=== PATIENT | female | born 1975 | race Caucasian/White ===

== ENCOUNTER → 2017-02-03 | Outpatient (REF) | payer OTHER ==
[~2017-02-03] MED LIST: ACET50TA PO; ANUS2.5C2 TOP; DOCU10ELUD PO; FLEX10TA2 PO; IBUP600T26 PO; LANOLIN CREAM TOP; MOM30SS PO; NO REGULAR MEDS; PRENTAB66 PO; TYLE325T5 PO
== END ==
LOC: M LAB REF 21:59
PROVIDERS: ATTEND Physician Assistant Medical
DX: N39.0 Urinary tract infection, site not specified (principal)

== ENCOUNTER → 2017-02-05 | Outpatient (REF) | payer OTHER | LOC: M LAB REF 17:06 | PROVIDERS: ATTEND Physician Assistant Medical | DX: N39.0 Urinary tract infection, site not specified (principal) ==

== ENCOUNTER → 2017-04-25 | Outpatient (CLI) | payer OTHER ==
[2017-04-25 13:43] LABS: BASO % 0.3 % (0.0-1.0); EOS # 0.2 10^3/uL (0.0-0.50); EOS % 1.7 % (0.0-3.0); IMMATURE GRANULOCYTE % 0.6 % (0-0); LYMPH # 1.8 10^3/uL (1.5-4.5); LYMPH % 19.5 % (24.0-44.0); MEAN CORPUSCULAR HEMOGLOBIN 31.3 pg (27.0-33.0); MEAN CORPUSCULAR HGB CONC 34.8 g/dl (32.0-36.5); MONO # 0.5 10^3/uL (0.0-0.8); MONO % 5.3 % (0.0-5.0); NEUTROPHILS # 6.9 10^3/uL (1.8-7.7); NEUTROPHILS % 72.6 % (36.0-66.0); PLATELET COUNT, AUTOMATED 316 10^3/uL (150-450); RED CELL DISTRIBUTION WIDTH 12.2 % (11.5-14.5); WHITE BLOOD COUNT 9.5 10^3/uL (4.0-10.0)
[2017-04-25 14:07] LABS: ALBUMIN 3.6 GM/DL (3.2-5.2); ALBUMIN/GLOBULIN RATIO 1.06 (1.00-1.93); ALKALINE PHOSPHATASE 106 U/L (45-117); ALT/SGPT 21 U/L (12-78); ANION GAP 9 MEQ/L (8-16); AST/SGOT 13 U/L (7-37); BILIRUBIN,TOTAL 0.4 MG/DL (0.2-1.0); BLOOD UREA NITROGEN 16 MG/DL (7-18); CALCIUM LEVEL 8.4 MG/DL (8.5-10.1); CARBON DIOXIDE LEVEL 27 MEQ/L (21-32); CHLORIDE LEVEL 105 MEQ/L (98-107); CHOLESTEROL LEVEL 200 MG/DL (<200); CREATININE FOR GFR 0.61 MG/DL (0.55-1.02); FREE T4 0.82 NG/DL (0.76-1.46); GLOMERULAR FILTRATION RATE > 60.0 (>58); GLUCOSE, FASTING 80 MG/DL (70-105); POTASSIUM SERUM 4.3 MEQ/L (3.5-5.1); SODIUM LEVEL 141 MEQ/L (136-145); TRIGLYCERIDES LEVEL 222 MG/DL (<150)
== END ==
LOC: M WUC 09:18
PROVIDERS: ATTEND Family Medicine
DX: Z13.220 Encounter for screening for lipoid disorders (principal); Z13.29 Encounter for screening for other suspected endocrine disorder; Z13.0 Encounter for screening for diseases of the blood and blood-forming organs and certain disorders involving the immune mechanism; E55.9 Vitamin D deficiency, unspecified

== ENCOUNTER → 2017-05-17 | Outpatient (CLI) | payer OTHER ==
[2017-05-17 16:59] LABS: ALBUMIN 3.8 GM/DL (3.2-5.2); ALBUMIN/GLOBULIN RATIO 1.15 (1.00-1.93); ALKALINE PHOSPHATASE 91 U/L (45-117); ALT/SGPT 25 U/L (12-78); AST/SGOT 18 U/L (7-37); BILIRUBIN,DIRECT < 0.1 MG/DL (0.0-0.2); BILIRUBIN,TOTAL 0.4 MG/DL (0.2-1.0); TOTAL PROTEIN 7.1 GM/DL (6.4-8.2)
== END ==
LOC: M WUC 11:04
PROVIDERS: ATTEND Family Medicine
DX: B35.1 Tinea unguium (principal)

== ENCOUNTER → 2017-06-14 | Outpatient (REF) | payer OTHER | LOC: M LAB REF 17:03 | DX: R30.0 Dysuria (principal) ==

== ENCOUNTER → 2017-07-23 | Outpatient (CLI) | payer OTHER ==
[2017-07-23 13:22] LABS: TOTAL 25(OH) VITAMIN D 68.7 NG/ML (30.0-100.0)
== END ==
LOC: M WUC 10:27
DX: E55.9 Vitamin D deficiency, unspecified (principal)

== ENCOUNTER → 2017-07-25 | Outpatient (REF) | payer OTHER | LOC: M LAB REF 13:05 | DX: R39.14 Feeling of incomplete bladder emptying (principal) ==

== ENCOUNTER 2017-08-20 06:00 | Day surgery (SDC) | payer OTHER ==
[~2017-08-20 06:00] MED LIST changes: -ACET50TA PO; -ANUS2.5C2 TOP; -DOCU10ELUD PO; -FLEX10TA2 PO; -IBUP600T26 PO; -LANOLIN CREAM TOP; +LR 1,000 ML IV; -MOM30SS PO; -NO REGULAR MEDS; -PRENTAB66 PO; -TYLE325T5 PO
[2017-08-20 06:30] LABS: CONTROL LINE UCG INT CTR LINE PRESENT; URINE PREG TEST NEGATIVE (NEGATIVE)
[2017-08-20] MEDS ORDERED: fentaNYL 100 MCG/2 ML INJECTION (J3010) As Ordered ×3 (06:32→08:48)
[2017-08-20] MEDS ORDERED: PROPOFOL 200 MG/20 ML VIAL As Ordered (06:32)
[2017-08-20] MEDS ORDERED: LIDOCAINE 2% INJ 100 MG/5 ML SDV (FOR ANES.) As Ordered (06:32)
[2017-08-20] MEDS ORDERED: MIDAZOLAM INJ 2 MG/2 ML VIAL (J2250) As Ordered (06:32)
[2017-08-20] MEDS ORDERED: ROCURONIUM BROMIDE 50 MG/5 ML VIAL As Ordered (06:32)
[2017-08-20] MEDS: LR 1,000 ML IV (06:50)
[2017-08-20] MEDS ORDERED: ONDANSETRON 4MG/2ML VIAL (J2405) As Ordered ×2 (07:03→08:20)
[2017-08-20] MEDS ORDERED: dexameTHASONE 4 MG/ML 1ML VIAL (J1100) As Ordered (07:03)
[2017-08-20] MEDS ORDERED: METOCLOPRAMIDE INJ 10MG/2ML VIAL (J2765) As Ordered (07:05)
[2017-08-20] MEDS: SCOPOLAMINE 1MG TRANSDERMAL PATCH TOP (07:05)
[2017-08-20] MEDS ORDERED: GLYCOPYRROLATE INJ 0.2 MG/ML 2 ML VIAL As Ordered (08:12)
[2017-08-20] MEDS ORDERED: NEOSTIGMINE 10 MG/10 ML VIAL (J2710) As Ordered (08:12)
[2017-08-20] MEDS ORDERED: KETOROLAC 30 MG/ML VIAL (J1885) As Ordered (08:48)
[2017-08-20] MEDS: KETOROLAC 30 MG/ML VIAL (J1885) IV (08:55)
[2017-08-20] MEDS: fentaNYL 100 MCG/2 ML INJECTION (J3010) IV ×4 (08:56→09:14)
[2017-08-20] MEDS ORDERED: ONDANSETRON 4MG/2ML VIAL (J2405) IV (09:00)
[2017-08-20] MEDS ORDERED: IBUPROFEN 600 MG TAB PO (09:00)
[2017-08-20] MEDS ORDERED: LR 1,000 ML IV ×2 (09:00)
[2017-08-20] MEDS: PERCOCET 5MG/325MG TAB PO (09:19)
== END 2017-08-20 11:46 | disposition home or self-care (01) ==
LOC: M SDC 06:00
DX: N83.202 Unspecified ovarian cyst, left side (principal); N83.8 Other noninflammatory disorders of ovary, fallopian tube and broad ligament; F41.9 Anxiety disorder, unspecified; K21.9 Gastro-esophageal reflux disease without esophagitis; Z87.891 Personal history of nicotine dependence; Z87.59 Personal history of other complications of pregnancy, childbirth and the puerperium; Z88.2 Allergy status to sulfonamides; Z79.899 Other long term (current) drug therapy
CPT/HCPCS: 49322

== ENCOUNTER → 2017-11-12 | Outpatient (CLI) | payer OTHER | LOC: M SMT 10:35 | DX: S90.31XA Contusion of right foot, initial encounter (principal); W18.30XA Fall on same level, unspecified, initial encounter; Y92.009 Unspecified place in unspecified non-institutional (private) residence as the place of occurrence of the external cause ==

== ENCOUNTER 2018-06-21 15:56 | Emergency (ER) | payer OTHER ==
[~2018-06-21] VITALS: Ht 162.6 cm; Wt 79.5 kg
[~2018-06-21 15:56] MED LIST changes: +ACET50TA PO; +ALPR0.5T3 PO; +ANUS2.5C2 TOP; +BIOTPOW20 PO; +DOCU10ELUD PO; +FLEX10TA2 PO; +IBUP600T26 PO; +LANOLIN CREAM TOP; +LEXA5TAB13 PO; -LR 1,000 ML IV; +MOM30SS PO; +MULT1TAB10 PO; +NO REGULAR MEDS; +PRENTAB66 PO; +TYLE325T5 PO; +VITA20008 PO
[2018-06-21] MEDS ORDERED: ROBA500T PO (17:37)
[2018-06-21 17:40] VITALS: BP 129/80
--- NOTE | 2018-06-21 17:53 | REP ---
Clinical: Trauma. Fall. Technique: Axial noncontrast images from the skull base to the thoracic inlet with coronal and sagittal re-formations. Findings: Alignment and lordosis maintained. No acute fracture / compression injury or subluxation. Endplate sclerosis and disc space narrowing noted at C7-T1 along with uncovertebral hypertrophic changes primarily noted at the C3-4 and C4-5 levels. Neural foramen appear grossly patent. The spinal canal is patent. The surrounding soft tissues are unremarkable. Impression: Degenerative changes as noted above. No acute fracture / compression injury or subluxation. Electronically Signed by Lalo Woods MD 06/21/2018 05:45 P
--- NOTE | 2018-06-21 17:55 | REP ---
Clinical: Trauma/fall . Comparison: None . Findings: The ventricles, sulci, and cisterns are normal in position and appearance. Vuong-white differentiation is maintained. No acute intracranial hemorrhage, mass/mass effect, pathology or trauma/injury. No evidence for acute infarction. No extra-axial fluid collection. Calvarium is intact. Paranasal sinuses and mastoid air cells are clear. Impression: Normal noncontrast head CT. No evidence for acute intracranial pathology or trauma/injury. Electronically Signed by Lalo Woods MD 06/21/2018 05:47 P
== END 2018-06-21 17:43 | disposition home or self-care (01) ==
LOC: M ED 15:56
DX: S16.1XXA Strain of muscle, fascia and tendon at neck level, initial encounter (principal); S09.90XA Unspecified injury of head, initial encounter; W19.XXXA Unspecified fall, initial encounter; Y92.89 Other specified places as the place of occurrence of the external cause; M79.7 Fibromyalgia; Z88.2 Allergy status to sulfonamides; Z79.899 Other long term (current) drug therapy

== ENCOUNTER 2018-09-12 06:09 | Day surgery (SDC) | payer OTHER ==
[~2018-09-12] VITALS: Ht 162.6 cm; Wt 74.8 kg
[~2018-09-12 06:09] MED LIST changes: -ACET50TA PO; +D200CAP PO; -DOCU10ELUD PO; +DOCU5LIQ PO; +LR 1,000 ML IV ONE; +MAPA500T17 PO; +PHEN-239 PO; +PROBCAP14 PO; +ROBA500T PO
[2018-09-12] MEDS ORDERED: LIDOCAINE 2% INJ 100 MG/5 ML SDV (FOR ANES.) As Ordered ONE (06:20)
[2018-09-12] MEDS ORDERED: ONDANSETRON 4MG/2ML VIAL (J2405) As Ordered ONE (06:20)
[2018-09-12] MEDS ORDERED: dexameTHASONE 4 MG/ML 1ML VIAL (J1100) As Ordered ONE (06:20)
[2018-09-12] MEDS ORDERED: PROPOFOL 200 MG/20 ML VIAL As Ordered ONE (06:20)
[2018-09-12] MEDS ORDERED: ROCURONIUM BROMIDE 50 MG/5 ML VIAL As Ordered ONE ×2 (06:20→09:35)
[2018-09-12] MEDS ORDERED: fentaNYL 250 MCG/5 ML INJECTION (J3010) As Ordered ONE (06:22)
[2018-09-12] MEDS ORDERED: MIDAZOLAM INJ 2 MG/2 ML VIAL (J2250) As Ordered ONE ×2 (06:23→13:30)
[2018-09-12 06:48] LABS: HEMATOCRIT 43.3 % (36.0-47.0); HEMOGLOBIN 14.6 g/dl (12.0-15.5); MEAN CORPUSCULAR HEMOGLOBIN 30.2 pg (27.0-33.0); MEAN CORPUSCULAR HGB CONC 33.7 g/dl (32.0-36.5); MEAN CORPUSCULAR VOLUME 89.5 fl (80.0-96.0); PLATELET COUNT, AUTOMATED 327 10^3/uL (150-450); RED BLOOD COUNT 4.84 10^6/uL (4.00-5.40); WHITE BLOOD COUNT 16.4 10^3/uL (4.0-10.0)
[2018-09-12 06:53] LABS: URINE PREG TEST NEGATIVE (NEGATIVE)
[2018-09-12] MEDS ORDERED: SCOPOLAMINE 1MG TRANSDERMAL PATCH As Ordered ONE (07:08)
[2018-09-12] MEDS ORDERED: VASOPRESSIN INJ 20 UNITS/ML VIAL As Ordered ONE (07:08)
[2018-09-12] MEDS ORDERED: SCOPOLAMINE 1MG TRANSDERMAL PATCH TOP ONE (07:30)
[2018-09-12] MEDS ORDERED: HYDROmorphone HCL 2 MG/ML 1ML VIAL (J1170) As Ordered ONE (09:04)
[2018-09-12] MEDS ORDERED: SUGAMMADEX SODIUM 500 MG/5 ML VIAL (BRIDION) As Ordered ONE (09:35)
[2018-09-12] MEDS ORDERED: KETOROLAC 60 MG/2 ML VIAL (J1885) As Ordered ONE (09:39)
[2018-09-12] MEDS ORDERED: MORPHINE 1MG/ML IN 0.9% NACL 100ML IV BAG As Ordered ONE (11:25)
[2018-09-12] MEDS ORDERED: fentaNYL 100 MCG/2 ML INJECTION (J3010) As Ordered ONE (11:28)
[2018-09-12] MEDS: fentaNYL 100 MCG/2 ML INJECTION (J3010) IV PRN ×4 (11:28→12:10)
[2018-09-12] MEDS ORDERED: HYDROMORPHONE HCL 0.5 MG/ 0.5 ML SYRINGE (J1170 PER 1) IV PRN (11:45)
[2018-09-12] MEDS ORDERED: ONDANSETRON 4MG/2ML VIAL (J2405) IV PRN (11:45)
[2018-09-12] MEDS ORDERED: KETOROLAC 30 MG/ML VIAL (J1885) IV PRN (11:45)
[2018-09-12] MEDS ORDERED: LR 1,000 ML IV SCH (11:45)
[2018-09-12] MEDS ORDERED: diazePAM 5 MG TAB As Ordered ONE (11:59)
[2018-09-12] MEDS ORDERED: diazePAM 5 MG TAB PO ONE ×2 (12:15→12:45)
--- NOTE | 2018-09-12 12:21 | RO ---
DATE OF PROCEDURE: 09/12/2018 PREOPERATIVE DIAGNOSES/INDICATION FOR SURGERY: Bleeding, pain, symptomatic prolapse, stress urinary incontinence with urethral hypermobility and failed endometrial ablation. POSTOPERATIVE DIAGNOSES: Bleeding, pain, symptomatic prolapse, stress urinary incontinence with urethral hypermobility and failed endometrial ablation. PROCEDURE: Total vaginal hysterectomy with bilateral salpingectomy. The patient retained her ovaries as planned. She had a sacrospinous suspension with an anterior posterior repair and cystourethroscopy and a Desara retropubic bottom to top midurethral sling and again cystourethroscopy. SURGEON: Yasmine Shin MD [employer] SUPERVISOR: ANESTHESIA: General endotracheal anesthesia. BRIEF DESCRIPTION OF PROCEDURE AND FINDINGS: Dorcas was brought to the operating room where sufficient general endotracheal anesthesia was induced and she was prepped, draped and positioned in the usual sterile fashion, and as expected she had prolapse and posteriorly there was definitely a posterior defect. There is obvious sort of disruption at the genital hiatus and some puckering posteriorly and then a bulging rectocele that started less than centimeter above the hymenal ring. Anteriorly there was a little bit of a urethrocele and a cystocele, but when we drained the bladder we could also see that part of that was enterocele, all of which we planned to repair but also leave adequate depth for function. We started with the hysterectomy. The bladder was drained. Anterior and posterior aspects of the cervix were grasped with a single tooth tenaculum and a circumferential incision was made around the base of the cervix with sharp and blunt dissection, continued to isolate the cardinal ligaments which were clamped with de Michelle clamps, which were used throughout this portion of the case and then the pedicles were transected with the SuperCut scissors and tied with #0 Vicryl, which again was used throughout this portion of the case. We continued our dissection in a stepwise progression along the lateral aspect of the uterus, opening the peritoneal space posteriorly, clamping and transecting the uterosacrals which were, of course, reattached to the cuff despite the fact that we also planned the sacrospinous suspension. We continued anteriorly, dissected away the bladder, and worked our way through the uterine vasculature, clamping, transecting, and ligating in a sequential fashion until the utero-ovarian suspensory ligaments were reached. These too were clamped, transected and ligated. There was a benign cyst on the right side in the ovary. The ovary was evaluated, the cyst ruptured to confirm clear serous fluid returned, and then with decompression that most likely functional cyst, the ovary was normal in appearance. The left ovary started out normal in appearance. We were able to remove the uterus with the left fallopian tube attached and then go back and get the right fallopian tube and with the uterus and both fallopian tubes, including the fimbria removed, the left tube did have a couple of tiny paratubal cysts, very benign in appearance. We did angle stitches of #0 Vicryl and did a peritoneal closure in a pursestring which closed off the enterocele and also facilitated the dissection towards the right side for the sacrospinous suspension and the patient has a nice prominence of the spine so we were readily able to isolate the sacrospinous ligament and using the AnchorSure we placed two AnchorSure anchors, each of them was threaded with two #2-0 PDS suture. So we had those placed and had four sutures, we were able then to dissect back from the cuff to do the anteroposterior repair apically and we used Allis clamps to sort of test placement. We were able to bring the vaginal cuff up to the sacrospinous ligament. Because of the defect posteriorly, I left a little laxity posteriorly so that I could come back and repair that without overcorrecting this patient who definitely wants function, but anteriorly we were able to get the anterior repair with the sacrospinous suspension and anterior dissection there, and of course, the closure of the enterocele that we had already accomplished. Posteriorly we got a lot of that posterior repair, but not all with the dissection from the apex of the vaginal cuff and then after we had brought that up, a single throw was passed on all four sutures and we went ahead and did cystoscopy and saw normal jets of urine from both ureters and normal appearance inside the bladder, did a 360 degree inspection of the bladder mucosa and it was normal in appearance and we could see that we had corrected the cystocele on the basis of the cystoscopy, so we finished off closing the cuff and bringing down those sutures. Then turned our attention to the midurethral sling. We are doing a Desara retropubic sling, working bottom to top. Injection anteriorly in the vaginal wall we injected a little vasopressin and then approximately a centimeter and a half cephalad from the urethral meatus we made a vertical midline anterior vaginal incision. We dissected away from the vaginal epithelium laterally to create the tunnels for our trocars. We identified our anatomic landmarks and then using the red rubber clad stylette to displace the urethra to the patient's right, we placed a left sided trocar on the first pass we did find near the urethra, but we did encounter at the vaginal mucosa several times oozing both at the vaginal cuff and here, and we did have a perforation of the bladder on the left side, but we backed that pass out and repositioned, went again and we were able to avoid injuring the bladder this time, and the patient is going to have her Donald overnight because of the hysterectomy, so she should not need anything more in that regard. We then carried out a similar procedure on the patient's right side with the red rubber shod stylette used to displace the urethra towards the left and the trocar passed, bottom to top again retropubically, and we had no difficulty with that pass and we scoped her again, and again confirmed lack of bladder injury and no further bleeding at the other bladder injury, which is pictured in the operative photos. We can in this thin patient see the course of the trocar quite easily on the right side, but we were able to move the trocar enough to see that it was moving loosely, it was not pinching or catching the bladder muscularis so not only was there no perforation but there was no undue closeness to the bladder there. We went ahead and brought up that Desara retropubic sling around the #8 Meghana creating a tension free placement and then removed the sheathing and trimmed off the mesh as is typical and closed those suprapubic wounds with #3-0 Vicryl interrupted stitches and then closed the vaginal wound with #2-0 Vicryl in running locked stitch correcting a little bit of the urethrocele with this closure as well. We then turned out attention to the posterior defect at the genital hiatus and in the perineal body as well as the obvious rectovaginal defect. We dissected out an inverted triangle of tissue at the perineum working fairly narrow but deep, because we did not want to over close, but we definitely wanted to have access to repair that defect and then dissect it posteriorly over the puckered defect and the tissue over the bulging defect in the tissue and then dissected out laterally opening up access to the rectovaginal tissues. Transverse #2-0 Vicryl sutures were placed in an interrupted fashion, in fact mattress sutures, used sutures to close the rectovaginal defect. We then recorrected the perineal body with #0 Vicryl and then trimmed some of the excess vaginal epithelium and closed the vaginal epithelium with #2-0 Vicryl in a couple running segments of #2-0 Vicryl locked closure and then did a subcu closure of the perineal body itself. With this closure the defect was corrected. Rectal exam confirmed no injury to the rectum and the procedure was then ended. ESTIMATED BLOOD LOSS: About 200 mL. The patient did have a bleeding sinus on the left posterior so we did packing. We had tied that off of course, so it was not still bleeding, but having encountered several areas in the skin that were oozing we went ahead and did a vaginal pack and of course a Donald was placed postoperatively as well. Again, estimated blood loss 200 mL. URINE OUTPUT: 100 mL. FLUID REPLACEMENT: Crystalloid. COMPLICATIONS: None. Again, we did have that perforation on the left but did not require repair or alteration in the course of the patient treatment. CONDITION AND DISPOSITION: Dorcas tolerated the procedure well and was recovering in the recovery room in good condition.
[2018-09-12] MEDS ORDERED: NALOXONE INJ 0.4 MG/1 ML VIAL (J2310) IV PRN (12:30)
[2018-09-12] MEDS ORDERED: NALBUPHINE HCL 10 MG/ML AMP (J2300) IV PRN (12:30)
[2018-09-12] MEDS ORDERED: EPIDURAL/PCA KEYS XX PRN (12:30)
[2018-09-12] MEDS ORDERED: diphenhydrAMINE INJ 50MG/ML VIAL (J1200) IV PRN (12:30)
[2018-09-12] MEDS ORDERED: MORPHINE 1MG/ML IN 0.9% NACL 100ML IV BAG IV PRN (12:30)
[2018-09-12] MEDS: PERCOCET 5MG/325MG TAB PO PRN ×2 (12:40→13:10)
[2018-09-12] MEDS: GABAPENTIN 300 MG CAP PO ONE ×2 (12:45→14:18)
[2018-09-12] MEDS ORDERED: MIDAZOLAM INJ 2 MG/2 ML VIAL (J2250) IV ONE (14:00)
[2018-09-12] MEDS ORDERED: MIDAZOLAM INJ 2 MG/2 ML VIAL (J2250) IV PRN (14:00)
[2018-09-12 15:00] VITALS: BP 136/85
[2018-09-12] MEDS: LR 1,000 ML IV SCH (15:00)
[2018-09-12 15:30] VITALS: BP 159/77
[2018-09-12 16:30] VITALS: BP 135/77
[2018-09-12 17:30] VITALS: BP 154/80
[2018-09-12 20:00] VITALS: BP 131/69
[2018-09-12] MEDS ORDERED: ALPRAZolam 0.5 MG TAB PO PRN (21:00)
[2018-09-12] MEDS ORDERED: ESCITALOPRAM OXALATE 5MG TABLET (LEXAPRO) PO SCH (21:00)
[2018-09-13] VITALS: BP 122/70
[2018-09-13] MEDS: IBUPROFEN 600 MG TAB PO PRN ×2 (01:52→08:58)
[2018-09-13] MEDS: LR 1,000 ML IV SCH (02:16)
[2018-09-13 04:00] VITALS: BP 124/58
[2018-09-13] MEDS ORDERED: NORCO, ANEXSIA 5/325MG TABLET (HYDROcodone/ACETAMINOPHEN) PO PRN (06:00)
[2018-09-13 07:32] LABS: HEMATOCRIT 29.5 % (36.0-47.0); MEAN CORPUSCULAR HEMOGLOBIN 30.7 pg (27.0-33.0); MEAN CORPUSCULAR HGB CONC 33.6 g/dl (32.0-36.5); MEAN CORPUSCULAR VOLUME 91.3 fl (80.0-96.0); PLATELET COUNT, AUTOMATED 302 10^3/uL (150-450); RED BLOOD COUNT 3.23 10^6/uL (4.00-5.40); WHITE BLOOD COUNT 15.9 10^3/uL (4.0-10.0)
[2018-09-13 07:58] LABS: HEMOGLOBIN 9.9 g/dl (12.0-15.5)
[2018-09-13] MEDS ORDERED: COLA100C5 PO (09:54)
[2018-09-13] MEDS ORDERED: NORC1TAB7 PO (09:54)
[2018-09-13] MEDS ORDERED: IBUP200T45 PO (09:54)
== END 2018-09-13 10:55 | disposition home or self-care (01) ==
LOC: M SDC 06:09 → M PED 14:50 → M SDC 09-13 10:55
PROVIDERS: ATTEND Obstetrics & Gynecology
DX: N93.9 Abnormal uterine and vaginal bleeding, unspecified (principal); N81.2 Incomplete uterovaginal prolapse; N39.3 Stress incontinence (female) (male); N36.41 Hypermobility of urethra; G43.909 Migraine, unspecified, not intractable, without status migrainosus; M79.7 Fibromyalgia; M12.9 Arthropathy, unspecified; N83.209 Unspecified ovarian cyst, unspecified side; Z88.2 Allergy status to sulfonamides; Z79.899 Other long term (current) drug therapy; Z87.891 Personal history of nicotine dependence
CPT/HCPCS: 36415; 57288; 58291; 84703; 85027; 86850; 86900; 86901; 88307; C1713; C1771; J0690; J1100; J1170; J1885; J2250; J2405; J3010

== ENCOUNTER 2019-04-27 16:38 | Emergency (ER) | payer OTHER ==
[~2019-04-27] VITALS: Ht 162.6 cm; Wt 82.0 kg
[~2019-04-27 16:38] MED LIST changes: +COLA100C5 PO; +IBUP200T45 PO; -LR 1,000 ML IV ONE; +NORC1TAB7 PO
[2019-04-27] MEDS ORDERED: CYCL10TA (16:45)
[2019-04-27] MEDS ORDERED: CIPR-249 PO (17:39)
[2019-04-27] MEDS ORDERED: PYRI1TAB5 PO (17:39)
[2019-04-27] MEDS ORDERED: PHENAZOPYRIDINE 100 MG TAB PO ONE (17:45)
[2019-04-27] MEDS ORDERED: CIPROFLOXACIN 500 MG TAB PO ONE (17:45)
[2019-04-27 18:06] VITALS: BP 151/89
== END 2019-04-27 18:13 | disposition home or self-care (01) ==
LOC: M ED 16:38
DX: N30.90 Cystitis, unspecified without hematuria (principal); M79.7 Fibromyalgia; F17.210 Nicotine dependence, cigarettes, uncomplicated; Z88.0 Allergy status to penicillin; Z79.2 Long term (current) use of antibiotics; Z79.899 Other long term (current) drug therapy

== ENCOUNTER → 2019-05-06 | Outpatient (CLI) | payer OTHER ==
[~2019-05-06] MED LIST changes: +CIPR-249 PO; +CYCL10TA; +PYRI1TAB5 PO
[2019-05-06 12:03] LABS: BASO # 0.1 10^3/uL (0.0-0.2); BASO % 0.4 % (0.0-1.0); EOS # 0.1 10^3/uL (0.0-0.5); EOS % 0.9 % (0.0-3.0); HEMATOCRIT 45.2 % (36.0-47.0); HEMOGLOBIN 15.3 g/dl (12.0-15.5); LYMPH % 17.2 % (24.0-44.0); MEAN CORPUSCULAR HEMOGLOBIN 30.7 pg (27.0-33.0); MEAN CORPUSCULAR HGB CONC 33.8 g/dl (32.0-36.5); MEAN CORPUSCULAR VOLUME 90.6 fl (80.0-96.0); MONO # 0.6 10^3/uL (0.0-0.8); MONO % 5.4 % (0.0-5.0); NEUTROPHILS # 8.7 10^3/uL (1.5-8.5); NEUTROPHILS % 75.7 % (36.0-66.0); PLATELET COUNT, AUTOMATED 324 10^3/uL (150-450); RED BLOOD COUNT 4.99 10^6/uL (4.00-5.40); WHITE BLOOD COUNT 11.5 10^3/uL (4.0-10.0)
[2019-05-06 12:49] LABS: ALT/SGPT 24 U/L (12-78); BILIRUBIN,TOTAL 0.6 MG/DL (0.2-1.0); BLOOD UREA NITROGEN 8 MG/DL (7-18); CALCIUM LEVEL 9.6 MG/DL (8.5-10.1); CARBON DIOXIDE LEVEL 27 MEQ/L (21-32); CHLORIDE LEVEL 105 MEQ/L (98-107); CHOLESTEROL LEVEL 224 MG/DL (<200); CHOLESTEROL RISK RATIO 4.765 (<5); CREATININE FOR GFR 0.69 MG/DL (0.55-1.30); FREE T4 0.93 NG/DL (0.76-1.46); GLOMERULAR FILTRATION RATE > 60.0 (>58); GLUCOSE, FASTING 93 MG/DL (70-100); HDL CHOLESTEROL 47 MG/DL (>40); LDL CHOLESTEROL 138 MG/DL (<100); NON-HDL-C 177 MG/DL; POTASSIUM SERUM 4.3 MEQ/L (3.5-5.1); SODIUM LEVEL 139 MEQ/L (136-145); TRIGLYCERIDES LEVEL 195 MG/DL (<150)
[2019-05-06 14:18] LABS: TOTAL 25(OH) VITAMIN D 35.3 NG/ML (30.0-100.0)
== END ==
LOC: M WUC 09:58
PROVIDERS: ATTEND Family Medicine
DX: E55.9 Vitamin D deficiency, unspecified (principal); Z13.0 Encounter for screening for diseases of the blood and blood-forming organs and certain disorders involving the immune mechanism; Z13.29 Encounter for screening for other suspected endocrine disorder; Z13.220 Encounter for screening for lipoid disorders

== ENCOUNTER → 2019-07-31 | Outpatient (REF) | payer OTHER | LOC: M LAB REF 17:02 | PROVIDERS: ATTEND Physician Assistant | DX: J02.9 Acute pharyngitis, unspecified (principal) ==

== ENCOUNTER → 2020-10-15 | Outpatient (REF) | payer OTHER ==
[~2020-10-15] MED LIST changes: +CYCL-707; -CYCL10TA
[2020-10-15 13:13] LABS: APPEARANCE, URINE HAZY (CLEAR); BACTERIA, URINE AUTO NEGATIVE (NEGATIVE); BILIRUBIN, URINE AUTO NEGATIVE (NEGATIVE); BLOOD, URINE BLOOD 3+ (NEGATIVE); COLOR, URINE YELLOW (YELLOW); GLUCOSE, URINE (UA) AUTO NEGATIVE (NEGATIVE); KETONE, URINE AUTO NEGATIVE (NEGATIVE); LEUKOCYTE ESTERASE, URINE AUTO 3+ (NEGATIVE); NITRITE, URINE AUTO NEGATIVE (NEGATIVE); PROTEIN, URINE AUTO 1+ mg/dL (NEGATIVE); RBC, URINE AUTO TNTC /HPF (0-3); SPECIFIC GRAVITY URINE AUTO 1.011 (1.002-1.035); SQUAMOUS EPITHELIAL CELL UR AU 1 /HPF (0-6); UROBILINOGEN, URINE AUTO 0.2 mg/dL (0.0-2.0); WBC, URINE AUTO TNTC /HPF (0-3)
== END ==
LOC: M LAB REF 12:13
PROVIDERS: ATTEND Physician Assistant Medical
DX: R30.0 Dysuria (principal)

== ENCOUNTER → 2021-04-03 | Outpatient (REF) | payer OTHER ==
[~2021-04-03] MED LIST changes: -IBUP200T45 PO; +IBUP200T46 PO
[2021-04-03 19:28] LABS: APPEARANCE, URINE HAZY (CLEAR); BACTERIA, URINE AUTO NEGATIVE (NEGATIVE); BILIRUBIN, URINE AUTO NEGATIVE (NEGATIVE); BLOOD, URINE BLOOD 1+ (NEGATIVE); COLOR, URINE AMBER (YELLOW); GLUCOSE, URINE (UA) AUTO NEGATIVE (NEGATIVE); KETONE, URINE AUTO NEGATIVE (NEGATIVE); LEUKOCYTE ESTERASE, URINE AUTO 1+ (NEGATIVE); MUCUS, URINE SMALL (NEGATIVE); NITRITE, URINE AUTO POSITIVE (NEGATIVE); PROTEIN, URINE AUTO NEGATIVE (NEGATIVE); RBC, URINE AUTO 13 /HPF (0-3); SPECIFIC GRAVITY URINE AUTO 1.023 (1.002-1.035); SQUAMOUS EPITHELIAL CELL UR AU 3 /HPF (0-6); WBC, URINE AUTO 46 /HPF (0-3)
== END ==
LOC: M LAB REF 19:04
PROVIDERS: ATTEND Physician Assistant Medical
DX: N39.0 Urinary tract infection, site not specified (principal)

== ENCOUNTER → 2021-06-27 | Outpatient (CLI) | payer OTHER | LOC: M WHC 07:45 | PROVIDERS: ATTEND Family Medicine | DX: Z12.31 Encounter for screening mammogram for malignant neoplasm of breast (principal) ==

== ENCOUNTER → 2021-10-25 | Outpatient (REF) | payer OTHER | LOC: M LAB REF 16:19 | PROVIDERS: ATTEND Physician Assistant Medical | DX: M79.10 Myalgia, unspecified site (principal) ==

== ENCOUNTER → 2021-11-02 | Outpatient (CLI) | payer OTHER ==
[2021-11-02 12:39] LABS: BASO # 0.1 10^3/uL (0.0-0.2); BASO % 0.5 % (0.0-1.0); EOS # 0.2 10^3/uL (0.0-0.5); EOS % 1.7 % (0.0-3.0); HEMATOCRIT 42.8 % (36.0-47.0); HEMOGLOBIN 15.2 g/dl (12.0-15.5); LYMPH # 2.4 10^3/uL (1.5-5.0); LYMPH % 23.4 % (24.0-44.0); MEAN CORPUSCULAR HEMOGLOBIN 31.9 pg (27.0-33.0); MEAN CORPUSCULAR HGB CONC 35.5 g/dl (32.0-36.5); MEAN CORPUSCULAR VOLUME 89.7 fl (80.0-96.0); MONO # 0.5 10^3/uL (0.0-0.8); MONO % 4.8 % (2.0-8.0); NEUTROPHILS # 7.1 10^3/uL (1.5-8.5); PLATELET COUNT, AUTOMATED 324 10^3/uL (150-450); RED BLOOD COUNT 4.77 10^6/uL (4.00-5.40); WHITE BLOOD COUNT 10.3 10^3/uL (4.0-10.0)
[2021-11-02 13:09] LABS: ALBUMIN 3.8 GM/DL (3.2-5.2); ALT/SGPT 25 U/L (12-78); BILIRUBIN,TOTAL 0.5 MG/DL (0.2-1.0); BLOOD UREA NITROGEN 9 MG/DL (7-18); CALCIUM LEVEL 9.4 MG/DL (8.5-10.1); CARBON DIOXIDE LEVEL 26 MEQ/L (21-32); CHLORIDE LEVEL 108 MEQ/L (98-107); CHOLESTEROL LEVEL 218 MG/DL (<200); CHOLESTEROL RISK RATIO 4.844 (<5); CREATININE FOR GFR 0.54 MG/DL (0.55-1.30); FREE T4 0.94 NG/DL (0.76-1.46); GLOMERULAR FILTRATION RATE > 60.0 (>58); GLUCOSE, FASTING 76 MG/DL (70-100); HDL CHOLESTEROL 45 MG/DL (>40); LDL CHOLESTEROL 124 MG/DL (<100); NON-HDL-C 173 MG/DL; POTASSIUM SERUM 4.1 MEQ/L (3.5-5.1); SODIUM LEVEL 141 MEQ/L (136-145); TOTAL PROTEIN 7.3 GM/DL (6.4-8.2); TRIGLYCERIDES LEVEL 244 MG/DL (<150)
[2021-11-02 13:11] LABS: TOTAL 25(OH) VITAMIN D 21.3 NG/ML (30.0-100.0)
== END ==
LOC: M WUC 10:32
PROVIDERS: ATTEND Family Medicine
DX: Z13.220 Encounter for screening for lipoid disorders (principal); Z13.29 Encounter for screening for other suspected endocrine disorder; Z13.0 Encounter for screening for diseases of the blood and blood-forming organs and certain disorders involving the immune mechanism; F34.1 Dysthymic disorder

== ENCOUNTER → 2022-06-30 | Outpatient (CLI) | payer OTHER | LOC: M WHC 15:55 | PROVIDERS: ATTEND Family Medicine | DX: Z12.31 Encounter for screening mammogram for malignant neoplasm of breast (principal) ==

== ENCOUNTER → 2022-11-10 | Outpatient (CLI) | payer OTHER ==
[2022-11-10 12:43] LABS: BASO % 0.4 % (0.0-1.0); EOS # 0.1 10^3/uL (0.0-0.5); EOS % 1.1 % (0.0-3.0); HEMATOCRIT 43.2 % (36.0-47.0); HEMOGLOBIN 14.8 g/dl (12.0-15.5); LYMPH # 1.9 10^3/uL (1.5-5.0); LYMPH % 21.7 % (24.0-44.0); MEAN CORPUSCULAR HGB CONC 34.3 g/dl (32.0-36.5); MEAN CORPUSCULAR VOLUME 90.4 fl (80.0-96.0); MONO # 0.5 10^3/uL (0.0-0.8); MONO % 6.1 % (2.0-8.0); NEUTROPHILS # 6.3 10^3/uL (1.5-8.5); NEUTROPHILS % 70.4 % (36.0-66.0); PLATELET COUNT, AUTOMATED 301 10^3/uL (150-450); RED BLOOD COUNT 4.78 10^6/uL (4.00-5.40); WHITE BLOOD COUNT 8.9 10^3/uL (4.0-10.0)
[2022-11-10 13:10] LABS: IRON (FE) 62 UG/DL (50-170)
[2022-11-10 13:11] LABS: ALBUMIN 4.1 G/DL (3.2-5.2); ALKALINE PHOSPHATASE 86 U/L (46-116); ALT/SGPT 17 U/L (7.0-40); AST/SGOT 9 U/L (<34); BILIRUBIN,TOTAL 0.7 MG/DL (0.3-1.2); BLOOD UREA NITROGEN 10 MG/DL (9-23); CALCIUM LEVEL 10.2 MG/DL (8.5-10.1); CARBON DIOXIDE LEVEL 28 MMOL/L (20-31); CHLORIDE LEVEL 106 MMOL/L (98-107); CHOLESTEROL LEVEL 199 MG/DL (<200); CHOLESTEROL RISK RATIO 4.14 (<5); CREATININE FOR GFR 0.61 MG/DL (0.55-1.30); GLOMERULAR FILTRATION RATE > 60.0 (>58); GLUCOSE, FASTING 78 MG/DL (60-100); LDL CHOLESTEROL 132.4 MG/DL (<100); PERCENT SATURATION 18.1 % (13.2-45.0); POTASSIUM SERUM 4.6 MMOL/L (3.5-5.1); SODIUM LEVEL 141 MMOL/L (136-145); TOTAL IRON BINDING CAPACITY 343 UG/DL (250-425); TOTAL PROTEIN 6.9 G/DL (5.7-8.2); TRIGLYCERIDES LEVEL 93 MG/DL (<150)
[2022-11-10 13:14] LABS: FREE T4 1.12 NG/DL (0.89-1.76); VITAMIN B12 LEVEL 489 PG/ML (211-911)
[2022-11-10 13:15] LABS: FERRITIN 105.2 NG/ML (7.3-270.7); THYROID STIMULATING HORMONE 1.118 uIU/ML (0.55-4.78); TOTAL 25(OH) VITAMIN D 28.4 NG/ML (20.0-100.0)
[2022-11-10 13:19] LABS: FOLATE 15.9 NG/ML (>5.4)
== END ==
LOC: M LAB 11:56
PROVIDERS: ATTEND Nurse Practitioner Adult Health
DX: E55.9 Vitamin D deficiency, unspecified (principal); E78.5 Hyperlipidemia, unspecified; R53.83 Other fatigue

== ENCOUNTER → 2023-07-06 | Outpatient (CLI) | payer OTHER | LOC: M WHC 08:13 | PROVIDERS: ATTEND Nurse Practitioner Adult Health | DX: Z12.31 Encounter for screening mammogram for malignant neoplasm of breast (principal) ==

== ENCOUNTER → 2023-08-04 | Outpatient (REF) | payer OTHER ==
[2023-08-04 13:25] LABS: APPEARANCE, URINE MANUAL CLEAR (CLEAR); COLOR, URINE MANUAL YELLOW (YELLOW); PROTEIN, URINE MANUAL TRACE mg/dL (NEGATIVE); SPECIFIC GRAVITY,URINE MANUAL 1.015 (1.002-1.035)
[2023-08-04 13:26] LABS: BILIRUBIN, URINE MANUAL NEGATIVE (NEGATIVE); BLOOD URINE MANUAL POSITIVE (NEGATIVE); GLUCOSE, URINE (UA) MANUAL NEGATIVE (NEGATIVE); KETONE, URINE MANUAL NEGATIVE (NEGATIVE); LEUKOCYTE ESTERASE, URINE MAN POSITIVE (NEGATIVE); NITRITE, URINE MANUAL POSITIVE (NEGATIVE); UROBILINOGEN, URINE MANUAL NORMAL (NORMAL)
[2023-08-04 13:28] LABS: RBC, URINE 0-1 /hpf (0-3)
[2023-08-04 13:29] LABS: BACTERIA, URINE SMALL AMOUNT; HYALINE CAST, URINE NONE SEEN /lpf (0-1); SQUAMOUS EPITHELIAL CELL URINE SMALL AMOUNT /hpf (SMALL AMT)
== END ==
LOC: M LAB REF 13:12
PROVIDERS: ATTEND Physician Assistant Medical
DX: N39.0 Urinary tract infection, site not specified (principal); B96.20 Unspecified Escherichia coli [E. coli] as the cause of diseases classified elsewhere

== ENCOUNTER 2023-09-25 08:25 | Day surgery (SDC) | payer OTHER ==
[~2023-09-25] VITALS: Ht 157.5 cm; Wt 68.9 kg
[~2023-09-25 08:25] MED LIST changes: +VITA1CAP25 PO
[2023-09-25] MEDS: NS 1,000 ML IV ONE (09:36)
[2023-09-25 10:15] VITALS: TEMP 97.5
[2023-09-25 10:32] VITALS: BP 137/86; O2SAT 100
[2023-09-25] MEDS ORDERED: propofoL 500 MG/50 ML VIAL As Ordered ONE (10:38)
== END 2023-09-25 10:38 | disposition home or self-care (01) ==
LOC: M OPP 08:25
PROVIDERS: ATTEND Internal Medicine Gastroenterology
DX: Z12.11 Encounter for screening for malignant neoplasm of colon (principal); Z12.12 Encounter for screening for malignant neoplasm of rectum; K57.30 Diverticulosis of large intestine without perforation or abscess without bleeding; K64.8 Other hemorrhoids; Z85.3 Personal history of malignant neoplasm of breast; Z90.710 Acquired absence of both cervix and uterus; Z88.2 Allergy status to sulfonamides

== ENCOUNTER → 2023-11-03 | Outpatient (REF) | payer OTHER ==
[2023-11-03 18:40] LABS: APPEARANCE, URINE HAZY (CLEAR); BACTERIA, URINE AUTO NEGATIVE (NEGATIVE); BILIRUBIN, URINE AUTO NEGATIVE (NEGATIVE); BLOOD, URINE BLOOD NEGATIVE (NEGATIVE); COLOR, URINE YELLOW (YELLOW); GLUCOSE, URINE (UA) AUTO NEGATIVE (NEGATIVE); KETONE, URINE AUTO NEGATIVE (NEGATIVE); LEUKOCYTE ESTERASE, URINE AUTO 2+ (NEGATIVE); MUCUS, URINE LARGE (NEGATIVE); NITRITE, URINE AUTO NEGATIVE (NEGATIVE); PROTEIN, URINE AUTO 1+ mg/dL (NEGATIVE); RBC, URINE AUTO 0 /HPF (0-3); SQUAMOUS EPITHELIAL CELL UR AU 2 /HPF (0-6); WBC, URINE AUTO 41 /HPF (0-3)
== END ==
LOC: M LAB REF 17:23
PROVIDERS: ATTEND Physician Assistant Medical
DX: N39.0 Urinary tract infection, site not specified (principal)

== ENCOUNTER → 2025-01-02 | Outpatient (CLI) | payer OTHER ==
[~2025-01-02] MED LIST changes: -PHEN-239 PO; +PHEN37.511 PO
[2025-01-02 12:30] LABS: BASO # 0.0 10^3/uL (0.0-0.2); BASO % 0.5 % (0.0-1.0); EOS # 0.1 10^3/uL (0.0-0.5); EOS % 1.5 % (0.0-3.0); LYMPH # 1.7 10^3/uL (1.5-5.0); LYMPH % 21.0 % (24.0-44.0); MONO # 0.5 10^3/uL (0.0-0.8); MONO % 6.6 % (2.0-8.0); NEUTROPHILS # 5.7 10^3/uL (1.5-8.5); NEUTROPHILS % 70.2 % (36.0-66.0); PLATELET COUNT, AUTOMATED 312 10^3/uL (150-450)
[2025-01-02 14:01] LABS: ALT/SGPT 28 U/L (7.0-40); AST/SGOT 25 U/L (<34); CALCIUM LEVEL 9.6 MG/DL (8.5-10.1); CARBON DIOXIDE LEVEL 24 MMOL/L (20-31); CHLORIDE LEVEL 105 MMOL/L (98-107); CHOLESTEROL LEVEL 204 MG/DL (<200); CHOLESTEROL RISK RATIO 4.20 (<5); CREATININE FOR GFR 0.53 MG/DL (0.55-1.30); FREE T4 1.25 NG/DL (0.89-1.76); GLOMERULAR FILTRATION RATE > 90.0 (>58); LDL CHOLESTEROL 129.9 MG/DL (<100); NON-HDL-C 155.5 MG/DL; POTASSIUM SERUM 4.1 MMOL/L (3.5-5.1); SODIUM LEVEL 142 MMOL/L (136-145); TOTAL 25(OH) VITAMIN D 59.0 NG/ML (20.0-100.0); TRIGLYCERIDES LEVEL 128 MG/DL (<150)
== END ==
LOC: M WUC 08:34
PROVIDERS: ATTEND Nurse Practitioner Adult Health
DX: E78.5 Hyperlipidemia, unspecified (principal); F34.1 Dysthymic disorder; E55.9 Vitamin D deficiency, unspecified